=== PATIENT | male | born 1965 | race Caucasian/White ===

== ENCOUNTER 2020-03-06 06:57 | Outpatient (NON) | payer OTHER, SELFPAY ==
[2020-03-06 18:46] LABS: SARS-CoV-2 RNA PCR Negative
== END 2020-03-06 06:58 ==
PROVIDERS: Visit Provider Physician Assistant
DX: Z20.828 Contact with and (suspected) exposure to other viral communicable diseases (principal); R09.89 Other specified symptoms and signs involving the circulatory and respiratory systems
CPT/HCPCS: 87635; C9803; U0003

== ENCOUNTER → 2021-11-30 11:29 | Outpatient (CLI) | payer OTHER, SELFPAY ==
--- NOTE | ~2021-11-30 | XR_ITS ---
EXAMINATION: XR chest 2V Exam Date/Time: 11/30/2021 12:00 CDT HISTORY: Chest Wall Pain Comparison: 09/17/2010. RESULT: Lines, tubes, and devices: None. Lungs and pleura: Clear. Cardiomediastinal silhouette: Stable. Other: No acute osseous or upper abdominal finding. IMPRESSION: No acute cardiopulmonary process. Reviewed, dictated and finalized at location K.
== END ==
PROVIDERS: PCP Family Medicine; Visit Provider Family Medicine
DX: R07.89 Other chest pain (principal)
CPT/HCPCS: 71046

== ENCOUNTER 2023-06-20 17:39 | Outpatient (CLI) | payer OTHER, SELFPAY ==
--- NOTE | ~2023-06-20 | XR_ITS ---
XR knee RT min 4V 06/20/2023 17:53 Indication: Right knee pain Procedure: 4 views right knee Comparison: No prior studies for comparison. Findings: There is mild tricompartment osteoarthritis. There is prepatellar soft tissue swelling. No significant joint effusion. No acute fracture or traumatic malalignment. Impression: 1: Moderate prepatellar soft tissue swelling which may be posttraumatic or secondary to bursitis. 2: Mild tricompartment osteoarthritis. Reviewed, dictated and finalized at location B. Impression: 1: Moderate prepatellar soft tissue swelling which may be posttraumatic or seco ndary to bursitis. 2: Mild tricompartment osteoarthritis.
== END 2023-06-20 17:40 | disposition home or self-care (01) ==
LOC: ANHIMG 17:42
PROVIDERS: PCP Family Medicine; Visit Provider Physician Assistant
DX: M17.11 Unilateral primary osteoarthritis, right knee (principal)
CPT/HCPCS: 73564